=== PATIENT | male | born 1930 | race Caucasian/White ===

== ENCOUNTER 2018-01-19 12:47 | Inpatient (IN) | payer MEDICARE ==
[2018-01-19] MEDS ORDERED: SODIUM CHLORIDE 0.9% 500 ML IV STA ×2 (13:08→14:26)
--- NOTE | 2018-01-19 13:11 | ED ---
General Adult HPI - General Chief complaint: Syncope Stated complaint: Syncope Time Seen by Provider: 01/19/18 12:50 Source: patient, EMS, RN notes reviewed Mode of arrival: EMS Limitations: no limitations - History of Present Illness Initial comments: This is an 87-year-old male who presents to the emergency department after having a couple episodes of lightheadedness. According to the son he was bending over doing some work for quite a while when he stood up he became lightheaded and was found leaning up against the house until he gathered himself. Shortly thereafter he seemed to be normal and then he had another episode in a similar manner. They decided at this time they should get him up and go to the hospital but when they did his legs gave out knee had to be laid down on the ground. According to the son he was not unconscious but he was unable to support his own weight at that time. Prior to the ambulance arriving he was able to get up and felt back to his baseline. Patient denies any headache patient denies numbness weakness. Patient denies chest pain palpitations difficulty breathing or shortness of breath. Patient states he ate a normal breakfast. Patient denies any recent history of vomiting or diarrhea. Patient denies any recent history of a fever or chills. Patient currently has no symptoms or complaints - Related Data Home Medications Medication Instructions Recorded Confirmed Oshpayw-Pler-Naiy [id number] 1 tab PO DAILY 01/19/18 01/19/18 [Excedrin] Losartan/Hydrochlorothiazide 1 tab PO DAILY 01/19/18 01/19/18 [Hyzaar 100-12.5 Tablet] Metoprolol Succinate (ER) [Toprol 50 mg PO DAILY 01/19/18 01/19/18 Xl] Multivitamins, Thera [Multivitamin 1 tab PO DAILY 01/19/18 01/19/18 (formulary)] Simvastatin [Zocor] 20 mg PO HS 01/19/18 01/19/18 Vit C/E/Zn/Coppr/Lutein/Zeaxan 1 cap PO BID 01/19/18 01/19/18 [Preservision Areds 2 Softgel] Allergies Allergy/AdvReac Type Severity Reaction Status Date / Time No Known Allergies Allergy Verified 01/19/18 13:12 Review of Systems ROS Statement: Those systems with pertinent positive or pertinent negative responses have been documented in the HPI. ROS Other: All systems not noted in ROS Statement are negative. Past Medical History Past Medical History: Hyperlipidemia, Hypertension Additional Past Medical History / Comment(s): macular degeneration History of Any Multi-Drug Resistant Organisms: None Reported Past Psychological History: No Psychological Hx Reported Smoking Status: Former smoker Past Alcohol Use History: Occasional Past Drug Use History: None Reported General Exam - General Exam Comments Initial Comments: GENERAL: Patient is well-developed and well-nourished. Patient is nontoxic and well- hydrated and is in no acute distress. ENT: Neck is soft and supple. No significant lymphadenopathy is noted. Oropharynx is clear. Moist mucous membranes. Neck has full range of motion without eliciting any pain. EYES: The sclera were anicteric and conjunctiva were pink and moist. Extraocular movements were intact and pupils were equal round and reactive to light. Eyelids were unremarkable. PULMONARY: Unlabored respirations. Good breath sounds bilaterally. No audible rales rhonchi or wheezing was noted. CARDIOVASCULAR: There is a regular rate and rhythm without any murmurs gallops or rubs. ABDOMEN: Soft and nontender with normal bowel sounds. No palpable organomegaly was noted. There is no palpable pulsatile mass. SKIN: Skin is clear with no lesions or rashes and otherwise unremarkable. NEUROLOGIC: Patient is alert and oriented x3. Cranial nerves II through XII are grossly intact. Motor and sensory are also intact. Normal speech, volume and content. Symmetrical smile. MUSCULOSKELETAL: Normal extremities with adequate strength and full range of motion. No lower extremity swelling or edema. No calf tenderness. LYMPHATICS: No significant lymphadenopathy is noted PSYCHIATRIC: Normal psychiatric evaluation. Normal interpersonal interactions appears functionally intact in deals appropriately with others. No signs of depression. No signs of anxiety. Limitations: no limitations Course Vital Signs 01/19/18 01/19/18 12:52 12:59 Temperature 98.9 F Pulse Rate 78 Respiratory 18 18 Rate Blood Pressure 116/58 O2 Sat by Pulse 100 Oximetry Medical Decision Making - Medical Decision Making EKG shows sinus rhythm at 95 bpm [place] interval is 212 QRS is 118 QT interval 322 QTC is 404. Patient's EKG shows inverted T waves in leads V5 and V6 as well as inferior leads II, III, and F aVF. Patient also has frequent PACs Chest x-ray shows nodules and a plaque that needs further workup. Patient's troponin was elevated so started the patient heparin for unstable angina. I spoke with Dr. Garcia and he agreed to admit the patient admitted the patient I continue the heparin Nitropaste and aspirin on the floor. I wrote admitting orders. - Lab Data Result diagrams: 01/19/18 13:00 01/19/18 13:00 Lab Results 01/19/18 01/19/18 01/19/18 Range/Units 13:00 13:00 13:00 WBC 5.7 (3.8-10.6) k/uL RBC 4.28 L (4.30-5.90) m/uL Hgb 11.4 L (13.0-17.5) gm/dL Hct 34.8 L (39.0-53.0) % MCV 81.5 (80.0-100.0) fL MCH 26.7 (25.0-35.0) pg MCHC 32.8 (31.0-37.0) g/dL RDW 15.8 H (11.5-15.5) % Plt Count 124 L (150-450) k/uL Neutrophils % 81 % Lymphocytes % 11 % Monocytes % 6 % Eosinophils % 1 % Basophils % 0 % Neutrophils # 4.6 (1.3-7.7) k/uL Lymphocytes # 0.6 L (1.0-4.8) k/uL Monocytes # 0.4 (0-1.0) k/uL Eosinophils # 0.1 (0-0.7) k/uL Basophils # 0.0 (0-0.2) k/uL PT (9.0-12.0) sec INR (<1.2) APTT (22.0-30.0) sec Sodium 138 (137-145) mmol/L Potassium 4.5 (3.5-5.1) mmol/L Chloride 104 (98-107) mmol/L Carbon Dioxide 25 (22-30) mmol/L Anion Gap 9 mmol/L BUN 29 H (9-20) mg/dL Creatinine 1.55 H (0.66-1.25) mg/dL Est GFR (CKD-EPI)AfAm 46 (>60 ml/min/1.73 sqM) Est GFR (CKD-EPI)NonAf 40 (>60 ml/min/1.73 sqM) Glucose 91 (74-99) mg/dL Calcium 9.0 (8.4-10.2) mg/dL Magnesium 2.2 (1.6-2.3) mg/dL Total Bilirubin 1.2 (0.2-1.3) mg/dL AST 26 (17-59) U/L ALT 35 (21-72) U/L Alkaline Phosphatase 86 (38-126) U/L Total Creatine Kinase 158 (55-170) U/L CK-MB (CK-2) 2.7 H (0.0-2.4) ng/mL CK-MB (CK-2) Rel Index 1.7 Troponin I 0.223 H* (0.000-0.034) ng/mL Total Protein 6.5 (6.3-8.2) g/dL Albumin 3.8 (3.5-5.0) g/dL 01/19/18 Range/Units 13:00 WBC (3.8-10.6) k/uL RBC (4.30-5.90) m/uL Hgb (13.0-17.5) gm/dL Hct (39.0-53.0) % MCV (80.0-100.0) fL MCH (25.0-35.0) pg MCHC (31.0-37.0) g/dL RDW (11.5-15.5) % Plt Count (150-450) k/uL Neutrophils % % Lymphocytes % % Monocytes % % Eosinophils % % Basophils % % Neutrophils # (1.3-7.7) k/uL Lymphocytes # (1.0-4.8) k/uL Monocytes # (0-1.0) k/uL Eosinophils # (0-0.7) k/uL Basophils # (0-0.2) k/uL PT 10.7 (9.0-12.0) sec INR 1.1 (<1.2) APTT 22.3 (22.0-30.0) sec Sodium (137-145) mmol/L Potassium (3.5-5.1) mmol/L Chloride (98-107) mmol/L Carbon Dioxide (22-30) mmol/L Anion Gap mmol/L BUN (9-20) mg/dL Creatinine (0.66-1.25) mg/dL Est GFR (CKD-EPI)AfAm (>60 ml/min/1.73 sqM) Est GFR (CKD-EPI)NonAf (>60 ml/min/1.73 sqM) Glucose (74-99) mg/dL Calcium (8.4-10.2) mg/dL Magnesium (1.6-2.3) mg/dL Total Bilirubin (0.2-1.3) mg/dL AST (17-59) U/L ALT (21-72) U/L Alkaline Phosphatase (38-126) U/L Total Creatine Kinase (55-170) U/L CK-MB (CK-2) (0.0-2.4) ng/mL CK-MB (CK-2) Rel Index Troponin I (0.000-0.034) ng/mL Total Protein (6.3-8.2) g/dL Albumin (3.5-5.0) g/dL Critical Care Time Critical Care Time: Yes Total Critical Care Time: 35 Disposition Clinical Impression: Unstable angina Disposition: ADMITTED IP TO THIS [facility] Referrals: Nonstaff,Physician [Primary Care Provider] - 1-2 days Time of Disposition: 14:27
[2018-01-19 13:20] LABS: Basophils % (A) 0 %; Eosinophils # (A) 0.1 k/uL (0-0.7); Eosinophils % (A) 1 %; HCT 34.8 % (39.0-53.0); HGB 11.4 gm/dL (13.0-17.5); Lymphocytes # (A) 0.6 k/uL (1.0-4.8); Lymphocytes % (A) 11 %; MCH 26.7 pg (25.0-35.0); MCHC 32.8 g/dL (31.0-37.0); MCV 81.5 fL (80.0-100.0); Mean Platelet Volume 8.5; Monocytes # (A) 0.4 k/uL (0-1.0); Monocytes % (A) 6 %; Neutrophils # (A) 4.6 k/uL (1.3-7.7); Neutrophils % (A) 81 %; Platelet Count 124 k/uL (150-450); RBC 4.28 m/uL (4.30-5.90); RDW 15.8 % (11.5-15.5); WBC 5.7 k/uL (3.8-10.6)
[2018-01-19 13:28] LABS: Albumin 3.8 g/dL (3.5-5.0); Magnesium 2.2 mg/dL (1.6-2.3); Potassium 4.5 mmol/L (3.5-5.1); Total Bilirubin 1.2 mg/dL (0.2-1.3); Total Protein 6.5 g/dL (6.3-8.2)
[2018-01-19 13:45] LABS: INR 1.1 (<1.2); Partial Thromboplastin Time 22.3 sec (22.0-30.0); Prothrombin Time 10.7 sec (9.0-12.0)
[2018-01-19 13:52] LABS: Creatine Kinase MB 2.7 ng/mL (0.0-2.4)
[2018-01-19 13:53] LABS: Troponin I 0.223 ng/mL (0.000-0.034)
--- NOTE | 2018-01-19 14:05 | XR ---
EXAMINATION TYPE: XR chest 2V DATE OF EXAM: 01/19/2018 HISTORY: Chest Pain. REFERENCE: NONE. FINDINGS: There is increased opacity in the right lung apex. It would be difficult to exclude a mass lesion. The heart is enlarged. There appears to be pleural plaque present on the left. Pleural spaces are oth erwise clear. IMPRESSION: 1. CARDIOMEGALY. 2. 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 3. INCREASED OPACITY IN THE RIGHT LUNG APEX IS WORRISOME. A CT SCAN OF THE CHEST WOULD BE SUGGESTED.
[2018-01-19] MEDS ORDERED: methylPREDNISolone SOD SUCCI 125 MG/2 ML VIAL IV STA (14:26)
[2018-01-19] MEDS ORDERED: ALBUTEROL NEBULIZED 2.5 MG/3 ML INHALATION STA (14:26)
[2018-01-19] MEDS ORDERED: ASPIRIN 81 MG PO STA (14:27)
[2018-01-19] MEDS ORDERED: NITROGLYCERIN SL TABS 0.4 MG TAB SUBLINGUAL PRN (14:27)
[2018-01-19] MEDS ORDERED: HEPARIN SODIUM,PORCINE 5,000 UNIT/ML 1 ML VIAL IV ONE (14:27)
[2018-01-19] MEDS: HEPARIN SOD,PORK IN 0.45% NACL 25,000 UNIT in 0.45% NACL 1 500ML.BAG IV SCH (15:22)
[2018-01-19] MEDS: NITROGLYCERIN OINT 1 INCH/GM PACKET TOPICAL SCH ×2 (17:01→23:20)
[2018-01-19 19:51] LABS: Creatine Kinase MB 2.4 ng/mL (0.0-2.4)
[2018-01-19 20:03] LABS: Troponin I 0.198 ng/mL (0.000-0.034)
--- NOTE | 2018-01-19 22:41 | HP ---
HISTORY AND PHYSICAL CHIEF COMPLAINT: Shortness of breath and near syncope. HISTORY OF PRESENT ILLNESS: This is the first admission of this 87-year-old white male from [place]. He comes up to [place] in the summer. He came to the emergency room when he was brought by his son after he became nearly syncopal. He is a very well-preserved and active gentleman who mows his own grass and complains very little about anything. However, he has noticed in the last several months he becomes more short of breath with exertion and at times becomes lightheaded and nearly syncopal. He has no chest pain. He does not have a history of heart disease. He had a brother who had rheumatic heart disease and suddenly. The patient has never had strep infection or rheumatic fever that he knows of. He came to emergency room where his EKG demonstrated some questionable changes that could represent ischemia. His troponin was slightly elevated at 0.223 as well. He has had no pleuritic pain. REVIEW OF SYSTEMS: He has had no CVAs, TIAs, MIs, cough, hemoptysis, abdominal pain, vomiting, indigestion, diarrhea, melena, renal disease, diabetes, etc. PAST MEDICAL HISTORY, FAMILY HISTORY, PERSONAL AND SOCIAL HISTORIES: Reveal that he is not allergic to any medication. He takes: 1. Hyzaar. 2. Zocor. 3. Toprol and. 4. Aspirin. He believes his blood pressure has been under good control. He has not smoked since he was 37 years old. He does not drink regularly. He was treated for carcinoma of the prostate 2 years ago. 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 White count 5700 with a hemoglobin 11.4. GFR was 40. Troponin was 0.223 with an upper limit of normal of 0.034. PHYSICAL EXAM: Blood pressure is 116/58 with a pulse 78 and regular, respirations of 25 and he is afebrile. In general, he appeared to be well-developed, well-nourished, in no acute distress. Skin color is normal. Skin is warm and dry. Lymph nodes not enlarged. Head, ears, eyes, nose, mouth, and throat were normal. Neck veins were not distended. Thyroid is not enlarged. Chest is clear. Cardiac demonstrates a grade 2/6 systolic murmur. It does not appear to radiate to the carotids. There is no S3, S4. The abdomen is soft, nontender without any visceromegaly masses. EXTREMITIES: Normal. Neurologically, he is intact. IMPRESSION: 1. Near syncopal events. 2. Shortness of breath with exertion. 3. Cardiac murmur. 4. Possible aortic stenosis or mitral insufficiency. 5. History of carcinoma of the prostate. 6. Renal failure. PLAN: 1. Bed rest. 2. IV fluids. 3. Repeat cardiac enzymes to rule out infarction. 4. Echocardiogram. 5. BNP. MMODL / IJN: [id number] /
[2018-01-20 00:53] LABS: Cholesterol 97 mg/dL (<200); HDL Cholesterol 45 mg/dL (40-60); LDL Cholesterol,Calculated 42 mg/dL (0-99); Triglycerides 49 mg/dL (<150)
[2018-01-20 01:46] LABS: Creatine Kinase MB 1.7 ng/mL (0.0-2.4)
[2018-01-20 01:52] LABS: Troponin I 0.172 ng/mL (0.000-0.034)
[2018-01-20] MEDS: NITROGLYCERIN OINT 1 INCH/GM PACKET TOPICAL SCH ×3 (06:04→17:13)
[2018-01-20] MEDS: ASPIRIN 325 MG TAB PO SCH (08:58)
[2018-01-20] MEDS ORDERED: FUROSEMIDE 10 MG/ML 4 ML VIAL IV STA (09:41)
[2018-01-20 09:46] LABS: Basophils % (A) 0 %; Eosinophils # (A) 0.1 k/uL (0-0.7); Eosinophils % (A) 3 %; HCT 32.4 % (39.0-53.0); HGB 10.3 gm/dL (13.0-17.5); Lymphocytes # (A) 0.9 k/uL (1.0-4.8); Lymphocytes % (A) 22 %; MCH 25.8 pg (25.0-35.0); MCHC 31.9 g/dL (31.0-37.0); MCV 80.9 fL (80.0-100.0); Mean Platelet Volume 8.7; Monocytes # (A) 0.3 k/uL (0-1.0); Monocytes % (A) 8 %; Neutrophils # (A) 2.6 k/uL (1.3-7.7); Neutrophils % (A) 66 %; Platelet Count 100 k/uL (150-450); RDW 15.7 % (11.5-15.5)
[2018-01-20 09:59] LABS: Calcium 9.2 mg/dL (8.4-10.2); Potassium 4.3 mmol/L (3.5-5.1)
[2018-01-20] MEDS: LOSARTAN 50 MG TAB PO SCH (10:35)
[2018-01-20] MEDS: ATORVASTATIN 20 MG TAB PO SCH (10:35)
[2018-01-20] MEDS: METOPROLOL TARTRATE 25 MG TAB PO SCH ×2 (10:35→20:00)
--- NOTE | 2018-01-20 11:13 | CONS ---
CONSULTATION Mr. Julien Ghosh is a gentleman who lives in the [facility] and has his health care in that place. However, he came here to help his son who was having a plumbing project. 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 While he was doing that yesterday he had episodes when he was going to pass out. He steadied himself, settled down, rested, felt better and seemed to be recurrent episodes of near-syncope and therefore he was brought into the hospital. After arrival to the hospital, he seemed to be doing better and he has been hospitalized and I was asked to see him in this regard. At the time of my evaluation, he feels very well. He denies any chest discomfort or shortness of breath at rest. Only with activity he felt dizzy, lightheaded and near syncopal, but did not quite pass out. On questioning he tells me that he has a primary care physician in the [facility], but was not told that he has a heart murmur. I evaluated the patient with the son next to him and both of them gave me some history as to what exactly happened yesterday. It appears that he was doing more than expected physical activity and this seemed to lead to the episodes of near syncope. PAST MEDICAL HISTORY: 1. Hypertension. 2. Hyperlipidemia. 3. History of macular degeneration. 4. No documented evidence of prior myocardial infarction or CVA. MEDICATIONS: At home include losartan HCTZ 100/12.5, 1 tab daily. Aspirin, Excedrin, metoprolol succinate 50 mg daily, simvastatin 20 mg daily. ALLERGIES: None. REVIEW OF SYSTEMS: Unremarkable other than above-mentioned facts. EXAMINATION: Blood pressure is 110/80, pulse rate is about 98 per minute regular. HEENT: Unremarkable. Fundus was not examined by me. Neck is supple. There is JVD of 1 cm. There is no carotid bruit. Heart exam reveals S1, S2 with ejection systolic murmur that is significant prolonged with peaks late and 2nd heart sound is not well heard. Clinically suggests severe aortic stenosis. Lungs reveal fine rales over both bases. Abdomen is soft, nontender. Lower extremity with diminished pulses. No edema. Central nervous system grossly no focal deficits. EKG revealed a sinus mechanism with a first-degree AV block, evidence of nondiagnostic inferior Q-waves, leftward axis, poor R-wave progression and mild IVCD with a LVH and repolarization abnormality. IMPRESSION: 1. Near syncopal episodes, recurrent, probably secondary to severe aortic stenosis. 2. Severe aortic stenosis. 3. Hypertension. 4. Hyperlipidemia. RECOMMENDATIONS: Clinically patient has probably severe aortic stenosis and his symptoms suggest a near- syncope related to that. He also has a elevated troponin which could also be related to aortic stenosis as well. However, we will continue the heparin drip for the time being. I will initiate him on beta blockers, give him 1 dose of Lasix, obtain an echocardiogram and based on this I will make further recommendations. I spoke to the patient, his son and also to spoke to the daughter by telephone. I explained to her that we are dealing with LV dysfunction related to aortic stenosis with some volume overload type picture. I will give him a small dose of Lasix. Check an echocardiogram and once we establish the diagnosis, they would like to take him to [facility] for further care. At this time, we will continue IV heparin, add a small dose of Lasix, beta nicanor, optimize BP control and watch him closely. Prognosis remains guarded. Thank you very much for the consult. MMODL / IJN: [id number] /
--- NOTE | 2018-01-20 13:25 | PN ---
PROGRESS NOTE CHIEF COMPLAINT: Shortness of breath, syncope. HISTORY OF PRESENT ILLNESS: This gentleman is doing well and he is having no problems, but he has been seen by Cardiology and he is having his echocardiogram tomorrow. PHYSICAL EXAM: Chest is clear. His systolic murmur is loudest at the upper right sternal border but cannot be heard in the carotids IMPRESSION: Probable aortic stenosis. PLAN: No change in program and await echocardiogram. MMODL / IJN: [id number] /
[2018-01-20 23:32] VITALS: RESP 16
[2018-01-21] MEDS: NITROGLYCERIN OINT 1 INCH/GM PACKET TOPICAL SCH ×3 (01:16→12:51)
[2018-01-21] MEDS: HEPARIN SOD,PORK IN 0.45% NACL 25,000 UNIT in 0.45% NACL 1 500ML.BAG IV SCH ×2 (08:36→16:09)
[2018-01-21] MEDS: LOSARTAN 50 MG TAB PO SCH (08:43)
[2018-01-21] MEDS: ASPIRIN 325 MG TAB PO SCH (08:43)
[2018-01-21] MEDS: ATORVASTATIN 20 MG TAB PO SCH (08:43)
[2018-01-21] MEDS: METOPROLOL TARTRATE 25 MG TAB PO SCH ×2 (08:43→16:17)
[2018-01-21 08:58] VITALS: TEMP 97
--- NOTE | 2018-01-21 11:01 | ECHOF ---
Referral Reason:echocardiogram, murmur, SOB, syncope MEASUREMENTS -------- HEIGHT: 162.6 cm WEIGHT: 89.8 kg BP: 96/57 RVIDd: 2.7 cm (< 3.3) IVSd: 1.4 cm (0.6 - 1.1) LVIDd: 5.2 cm (3.9 - 5.3) LVPWd: 1.2 cm (0.6 - 1.1) IVSs: 1.5 cm LVIDs: 5.3 cm LVPWs: 1.2 cm LA Diam: 4.6 cm (2.7 - 3.8) LAESV Index (A-L): 48.67 ml/m Ao Diam: 3.7 cm (2.0 - 3.7) AV Cusp: 1.4 cm (1.5 - 2.6) LA Diam: 4.9 cm (2.7 - 3.8) MV EXCURSION: 19.544 mm (> 18.000) MV EF SLOPE: 59 mm/s (70 - 150) EPSS: 0.9 cm MV E Wilbert: 0.60 m/s MV DecT: 222 ms MV A Wilbert: 0.96 m/s MV E/A Ratio: 0.62 AV maxP.87 mmHg AV meanP.54 mmHg RAP: 5.00 mmHg RVSP: 25.60 mmHg FINDINGS -------- Sinus rhythm. This was a technically adequate study. The left ventricular size is normal. There is mild concentric left ventricular hypertrophy. Overa ll left ventricular systolic function is moderate-severely impaired with, an EF between 30 - 35 %. Anterseptal Hypokinesis Inferior Hypokinesis Septal Hypokinesis The right ventricle is normal in size. The left atrium is markedly dilated. LA is severely dilated >40 ml/m2 The right atrial size is normal. There is moderate aortic valve sclerosis. There is moderate aortic stenosis present. Peak/mean gr adient across the Aortic Valve is 31.87mmHg / 18.54mmHg. Mild mitral annular calcification present. Mild mitral regurgitation is present. Mild tricuspid regurgitation present. There is no evidence of pulmonary hypertension. The right v entricular systolic pressure, as measured by Doppler, is 25.60mmHg. There is no pulmonic regurgitation present. The aortic root size is normal. There is no pericardial effusion. CONCLUSIONS -------- 1. The left ventricular size is normal. 2. There is mild concentric left ventricular hypertrophy. 3. Overall left ventricular systolic function is moderate-severely impaired with, an EF between 30 - 35 %. 4. Anterseptal Hypokinesis 5. Inferior Hypokinesis 6. Septal Hypokinesis 7. The right ventricle is normal in size. 8. The left atrium is markedly dilated. 9. LA is severely dilated >40 ml/m2 10. There is moderate aortic valve sclerosis. 11. There is moderate aortic stenosis present. 12. Peak/mean gradient across the Aortic Valve is 31.87mmHg / 18.54mmHg. 13. Mild mitral annular calcification present. 14. Mild mitral regurgitation is present. 15. Mild tricuspid regurgitation present. 16. There is no evidence of pulmonary hypertension. 17. The right ventricular systolic pressure, as measured by Doppler, is 25.60mmHg. 18. There is no pulmonic regurgitation present. 19. The aortic root size is normal. 20. There is no pericardial effusion. JUNIOR DATABASE ADMINISTRATOR: Kyara Valdes RDCS
[2018-01-21] MEDS ORDERED: FUROSEMIDE 40 MG TAB PO SCH (11:15)
--- NOTE | 2018-01-21 16:05 | PN ---
PROGRESS NOTE Julien Ghosh was seen by me yesterday and I spoke to the patient's daughter and son. Today I have evaluated the patient again and spoke to the patient's family. His echo revealed ejection fraction of 30-35 percent with inferior and septal hypokinesia. Aortic stenosis at least moderate with a low ejection fraction and the gradient is probably more severe than in the number that shows up on the Doppler. He is feeling better. He is ambulating without symptoms, has no chest pain or shortness of breath. Troponin has mild elevation. I am recommending coronary angiography, but patient wishes to go to [facility]. I personally called and talked to Dr. River Schumacher at [facility] and he promised to call the patient so he can see him within the next two weeks. Plan is to discharge him on Lopressor, oral Lasix and the patient can be discharged today. I gave written instructions to the patient's daughter regarding what his condition is and what he needs to have in the form of coronary angiography and possibly transesophageal echo and intervention based on findings. The patient will be discharged on current medical regimen which does include Lasix as well. Prognosis remains guarded and this was explained to the patient's family in detail. MMODL / IJN: [id number] /
[2018-01-21 16:21] VITALS: BP 102/62; PULSE 87
--- NOTE | 2018-01-21 22:02 | DS ---
DISCHARGE SUMMARY CHIEF COMPLAINT: Shortness of breath and syncope. HISTORY OF PRESENT ILLNESS AND PHYSICAL EXAM: Details of this man's history and physical can be found in the initial workup. LABORATORY STUDIES: While he was in the hospital, he had laboratory studies, details of which can be found in the laboratory section of chart. COURSE IN HOSPITAL: After admission, he was placed on bedrest, started on intravenous fluids and continued on telemetry. Seen by Cardiology because of elevated cardiac enzymes (troponin). An echocardiogram was performed and confirmed the diagnosis of aortic stenosis. The patient lives in [facility] and his family is associated with the [facility]. They requested to be discharged and evaluated and treated there. Arrangements were made and he will be released and follow up at the [facility]. He was encouraged to do so immediately, keep well hydrated and avoid excessive exercise and activity. FINAL DIAGNOSES: 1. Aortic stenosis. 2. Near-syncopal episodes. 3. Exertional shortness of breath. OPERATIONS: None. CONSULTATIONS: Cardiology. He is improved. MMODL / IJN: [id number] /
[2018-01-22] MEDS ORDERED: ASPIRIN 81 MG PO SCH (09:00)
--- NOTE | 2018-01-23 09:20 | CDI ---
Last Revision, April 2017 Documentation Clarification Form Date: 01/23/18 From: Bing Solo Phone: If you have a question regarding this query, please contact Lynn Edward at [phone] between 8am and 5pm. Admit Date: 01/19/2018 2:27:00 PM Patient Name: Julien Ghosh Visit Number: [id number] Discharge Date: 01/21/18 ATTENTION: The Clinical Documentation Specialists (CDI) and [facility] Coding Staff appreciate your assistance in clarifying documentation. Please respond to the clarification below the line at the bottom and electronically sign. The CDI & [facility] Coding staff will review the response and follow-up if needed. Please note: Queries are made part of the Legal Health Record. If you have any questions, please contact the author of this message via ITS. Narciso Vance MD Renal failure was documented in the H&P. History/Risk Factors: Patient was admitted for syncopal episode and found to have aortic stenosis and some volume overload. Patient has a history of hypertension and hyperlipidemia. Clinical Indicators: Volume overload. Patients Admission BUN/CR/GFR: 29/.55/40 Discharge BUN/Cr/GFR: 06/06.30/49 Treatment: IV Lasix 40mg once and PO Lasix 40 mg once IVF: 500 mls @999 mls/hr In order to capture the severity of condition, please clarify if the condition signifies: Acute renal failure, Please specify etiology (if known): Cortical Necrosis Medullary Necrosis Tubular Necrosis Acute kidney injury Acute on chronic renal failure CKD Stage 1 GFR >90 CKD Stage 2 GFR 60-89 CKD Stage 3 GFR 30-59 CKD Stage 4 GFR 15-29 CKD Stage 5 GFR <15 Chronic renal failure/Chronic Kidney disease (CKD) please stage if known CKD Stage 1 GFR >90 CKD Stage 2 GFR 60-89 CKD Stage 3 GFR 30-59 CKD Stage 4 GFR 15-29 CKD Stage 5 GFR <15 ESRD Other, please specify Unable to determine MTDD
--- NOTE | 2018-01-28 21:12 | MISC ---
MISCELLANOUS REPORT QUERY: This has to do with renal failure. It is chronic kidney disease stage 3. MMODL / IJN: [id number] /
== END 2018-01-21 17:30 | disposition home or self-care (01) | DRG 307 ==
LOC: EC 12:47 → 6SEL 14:27
PROVIDERS: ADMIT Family Medicine; ATTEND Family Medicine
DX: I35.0 Nonrheumatic aortic (valve) stenosis (principal); E78.5 Hyperlipidemia, unspecified; I12.9 Hypertensive chronic kidney disease with stage 1 through stage 4 chronic kidney disease, or unspecified chronic kidney disease; N18.3 Chronic kidney disease, stage 3 (moderate); H35.30 Unspecified macular degeneration; R55 Syncope and collapse; R77.9 Abnormality of plasma protein, unspecified; Z79.82 Long term (current) use of aspirin; Z79.899 Other long term (current) drug therapy; Z87.891 Personal history of nicotine dependence; Z85.46 Personal history of malignant neoplasm of prostate
CPT/HCPCS: 36415; 71046; 80048; 80053; 80061; 82550; 82553; 83735; 83880; 84484; 85025; 85379; 85610; 85730; 93005; 93306; 94760; 96361; 96374; 99291